=== PATIENT | female | born 1965 | race Hispanic/Latino ===

== ENCOUNTER 2020-10-31 16:08 | Emergency (ER) | payer SELFPAY ==
[~2020-10-31] VITALS: Ht 165.1 cm; Wt 77.1 kg
[2020-10-31] MEDS ORDERED: ONDANSETRON ODT4 MG PO (16:36)
== END 2020-10-31 16:40 | disposition home or self-care (01) ==
LOC: ER 16:36
DX: M54.89 Other dorsalgia (principal); M54.2 Cervicalgia; R42 Dizziness and giddiness; R11.0 Nausea; V49.40XA Driver injured in collision with unspecified motor vehicles in traffic accident, initial encounter; Y92.410 Unspecified street and highway as the place of occurrence of the external cause
CPT/HCPCS: 99282

== ENCOUNTER 2021-03-03 17:00 | Emergency (ER) | payer BC ==
[~2021-03-03] VITALS: Ht 165.1 cm; Wt 77.1 kg
[~2021-03-03 17:00] MED LIST: ONDANSETRON ODT4 MG PO
[2021-03-03] MEDS ORDERED: DEXAMETHASONE SOD PHOS 10 MG/1 ML VIAL IM ONE (17:30)
[2021-03-03] MEDS ORDERED: PREDNISONE50 MG PO (17:42)
[2021-03-03] MEDS ORDERED: METHOCARBAMOL750 MG PO (17:42)
[2021-03-03] MEDS ORDERED: IBUPROFEN600 MG PO (17:42)
== END 2021-03-03 18:59 | disposition home or self-care (01) ==
LOC: ER 17:05
DX: M54.41 Lumbago with sciatica, right side (principal)
CPT/HCPCS: 72110; 99283

== ENCOUNTER → 2021-05-31 | Day surgery (SDC) | payer BC ==
[2021-05-30 09:14] LABS: BASOPHILS # (AUTO) 0.1 (0.0-0.1); BASOPHILS % 1.4 % (0.0-1.0); EOSINOPHILS # (AUTO) 0.2 (0.0-0.4); EOSINOPHILS % 4.1 % (0.0-6.0); HEMATOCRIT 42.4 % (34.2-44.1); LYMPHOCYTES % 39.6 % (18.0-39.1); MONOCYTES # (AUTO) 0.4 (0.2-0.8); MONOCYTES % 8.2 % (4.4-11.3); NEUTROPHILS # (AUTO) 2.4 (2.1-6.9); NEUTROPHILS % 46.5 % (38.7-80.0); PLATELET COUNT 422 x10e3/uL (140-360); RED BLOOD COUNT 4.37 x10e6/uL (3.6-5.1)
[~2021-05-31] MED LIST changes: +ASPIRIN81 MG PO; +BIOTIN2500 MCG; +CANNABIS; +FENTANYL CITRATE/PF 100MCG/2 ML INJ ONE; +GLUCAGON FOR INJ 1 MG VIAL ONE; +HYDREA500 MG PO; +IBUPROFEN600 MG PO; +LIDOCAINE HCL 2% LOCAL INJ 5 ML SDV VIAL INJ ONE; +METHOCARBAMOL750 MG PO; +MIDAZOLAM HCL 2 MG/2 ML VIAL ONE; +PREDNISONE50 MG PO; +PROPOFOL IV EMULSION 10 MG/ML 20 ML VIAL ONE; +PROTONIX20 MG PO; +VALACYCLOVIR500 MG PO
[2021-05-31 14:10] VITALS: BP 141/74
== END | disposition home or self-care (01) ==
LOC: OR 10:00
PROVIDERS: ATTEND Internal Medicine Gastroenterology
DX: Z12.11 Encounter for screening for malignant neoplasm of colon (principal); D12.0 Benign neoplasm of cecum; D12.2 Benign neoplasm of ascending colon; D12.3 Benign neoplasm of transverse colon; D12.4 Benign neoplasm of descending colon; D12.5 Benign neoplasm of sigmoid colon; K59.00 Constipation, unspecified; K62.5 Hemorrhage of anus and rectum; K64.8 Other hemorrhoids; K21.9 Gastro-esophageal reflux disease without esophagitis; Z71.3 Dietary counseling and surveillance; M06.9 Rheumatoid arthritis, unspecified; M19.90 Unspecified osteoarthritis, unspecified site; D69.6 Thrombocytopenia, unspecified; M54.9 Dorsalgia, unspecified; R03.0 Elevated blood-pressure reading, without diagnosis of hypertension; R00.1 Bradycardia, unspecified; Z01.810 Encounter for preprocedural cardiovascular examination; Z01.812 Encounter for preprocedural laboratory examination; Z20.822 Contact with and (suspected) exposure to COVID-19; Z79.82 Long term (current) use of aspirin; Z68.27 Body mass index [BMI] 27.0-27.9, adult; Z80.0 Family history of malignant neoplasm of digestive organs
CPT/HCPCS: 36415; 45380; 45385; 85025; 93005; J1610; J2001; J2250; J2704; J3010; U0002

== ENCOUNTER → 2021-08-29 | Day surgery (SDC) | payer BC ==
[~2021-08-29] MED LIST changes: +BACLO PO; +BACLOFEN PO; -CANNABIS; +CANNABIS INH; -GLUCAGON FOR INJ 1 MG VIAL ONE; +METOCLOPRAMIDE HCL 10 MG/2ML VIAL ONE; +TIZANIDINE HCL4 M1 PO
[2021-08-29 09:34] VITALS: BP 116/70
== END | disposition home or self-care (01) ==
LOC: OR 07:48
PROVIDERS: ATTEND Internal Medicine Gastroenterology
DX: K21.9 Gastro-esophageal reflux disease without esophagitis (principal); K31.7 Polyp of stomach and duodenum; K29.50 Unspecified chronic gastritis without bleeding; K20.90 Esophagitis, unspecified without bleeding; D72.820 Lymphocytosis (symptomatic); D69.6 Thrombocytopenia, unspecified; R00.1 Bradycardia, unspecified; M19.90 Unspecified osteoarthritis, unspecified site; R53.1 Weakness; M54.9 Dorsalgia, unspecified; Z88.8 Allergy status to other drugs, medicaments and biological substances; Z01.812 Encounter for preprocedural laboratory examination; Z20.822 Contact with and (suspected) exposure to COVID-19; Z79.82 Long term (current) use of aspirin; Z86.16 Personal history of COVID-19
CPT/HCPCS: 0223U; 36415; 43239; C9113; J2001; J2704; J2765; J2250; J3010

== ENCOUNTER 2024-07-10 08:43 | Emergency (ER) | payer BC ==
[~2024-07-10] VITALS: Ht 165.1 cm; Wt 77.1 kg
[~2024-07-10 08:43] MED LIST changes: +AZITHROMYCIN250 MG PO; -FENTANYL CITRATE/PF 100MCG/2 ML INJ ONE; -LIDOCAINE HCL 2% LOCAL INJ 5 ML SDV VIAL INJ ONE; -METOCLOPRAMIDE HCL 10 MG/2ML VIAL ONE; -MIDAZOLAM HCL 2 MG/2 ML VIAL ONE; +PAXLOVID 300-11 EAC1 PO; +PREDNISONE20 MG PO; -PROPOFOL IV EMULSION 10 MG/ML 20 ML VIAL ONE; +ULTRAM 50MG50 MG PO
[2024-07-10 08:49] VITALS: RESP 18; TEMP 98.1
[2024-07-10] MEDS ORDERED: KETOROLAC TROMETHAMINE 30 MG/ML VIAL IV STA (09:09)
[2024-07-10 09:14] LABS: BASOPHILS % 0.6 % (0.0-1.0); EOSINOPHILS # (AUTO) 0.2 (0.0-0.4); EOSINOPHILS % 4.4 % (0.0-6.0); HEMATOCRIT 39.4 % (34.2-44.1); HEMOGLOBIN 13.1 g/dL (12.0-16.0); LYMPHOCYTES # (AUTO) 2.4 (1.0-3.2); LYMPHOCYTES % 45.6 % (18.0-39.1); MEAN CORPUSCULAR HEMOGLOBIN 33.2 pg (28-32); MEAN CORPUSCULAR HGB CONC 33.2 g/dL (31-35); MONOCYTES # (AUTO) 0.5 (0.2-0.8); MONOCYTES % 8.8 % (4.4-11.3); NEUTROPHILS # (AUTO) 2.1 (2.1-6.9); NEUTROPHILS % 40.4 % (38.7-80.0); PLATELET COUNT 444 x10e3/uL (140-360); RED BLOOD COUNT 3.94 x10e6/uL (3.6-5.1); RED CELL DISTRIBUTION WIDTH 17.9 % (11.7-14.4); WHITE BLOOD COUNT 5.24 x10e3/uL (4.8-10.8)
[2024-07-10 09:40] LABS: ALBUMIN 3.9 g/dL (3.5-5.0); ALBUMIN/GLOBULIN RATIO 1.1 (0.8-2.0); ANION GAP 14.7 mmol/L (8-16); BILIRUBIN,TOTAL 0.3 mg/dL (0.2-1.2); CALCIUM 8.9 mg/dL (8.4-10.2); CREATININE, SERUM 0.69 mg/dL (0.57-1.11); POTASSIUM 3.7 mmol/L (3.5-5.1); TOTAL PROTEIN 7.3 g/dL (6.5-8.1)
[2024-07-10] MEDS: DIPHENHYDRAMINE HCL 25 MG CAP PO ONE (09:44)
[2024-07-10] MEDS: METOCLOPRAMIDE HCL 10 MG/2ML VIAL IV ONE (09:44)
[2024-07-10] MEDS: SODIUM CHLORIDE 0.9% 1000ML 1,000 ML IV SCH (09:44)
[2024-07-10 09:46] LABS: TROPONIN I 0.007 ng/mL (0-0.300)
[2024-07-10] MEDS: KETOROLAC TROMETHAMINE 30 MG/ML VIAL IV STA (10:21)
[2024-07-10] MEDS: TRAMADOL HCL 50 MG TAB PO ONE (10:21)
[2024-07-10 10:22] VITALS: PULSE 68; O2SAT 98
== END 2024-07-10 11:28 | disposition home or self-care (01) ==
LOC: ER 08:48
DX: R51.9 Headache, unspecified (principal); R07.89 Other chest pain; R94.31 Abnormal electrocardiogram [ECG] [EKG]
CPT/HCPCS: 36415; 71045; 80053; 84484; 85025; 93005; 99283; J1885; J2765; J7030